=== PATIENT | female | born 1945 | race Caucasian/White ===

== ENCOUNTER 2021-04-23 12:29 | Emergency (ER) | payer OTHER ==
[~2021-04-23] VITALS: Ht 154.9 cm; Wt 45.4 kg
--- NOTE | ~2021-04-23 | EMS ---
[address] [address] EMS Patient Care Report Name: ALEXUS JEROME Room #: DEP MADH[facility] Chapman#: [id number] Admission: 04/23/21 Attend Phys: Discharge: 04/23/21 Date of : 45 Report #: [id number] THIS REPORT FOR: //name// Report Transmitted: 04/24/2021 09:58 EMS Care Summary [place], [place]/[facility] Incident [id number] @ 04/23/2021 11:50 Incident Location [address] [address] Patient ALEXUS JEROME Female, 76 Years 1945 Patient Address [address] [place] [address] Patient History Breast Cancer,Vertigo, Patient Allergies No known allergies, Patient Medications None Reported, Chief Complaint BACK PAIN Disposition Transported No Lights/[place] Dispatch Reason Falls Transported To [facility] Narrative M41 WAS DISPATCHED FOR FALL. UPON ARRIVAL THE PT WAS SITTING IN A CAHIR IN HER LIVING ROOM. THE PT INFORMED EMS THAT SHE HAD A SYNCOPAL EPISODE FOUR HOURS [address] [address] EMS Patient Care Report Name: ALEXUS JEROME Room #: DEP Ari#: [id number] Admission: 04/23/21 Attend Phys: Discharge: 04/23/21 Date of : 45 Report #: [id number] PRIOR. SHE SAID SHE HAD GOTTEN DIZZY WHILE GOING TO GET COFFEE AND HAD FALLEN ON THE KITCHEN FLOOR. THE PT DENIED HITTING HER HEAD. THE PT PAIN WAS LOCATED ON HER RIGHT SIDE AND BACK AROUND HER LOWER RIBS. THE PT SAID SHE WAS ABLE TO GET UP ON HER OWN AND HAD BEEN UP WALKING AROUND AND TALKING TO HER NEICE SINCE THE INCIDENT HAPPENED. THE PT SAID THIS WAS THE THIRD TIME IN THE LAST MONTH THAT SHE HAD HAD AN EPISOE LIKE THIS AND THAT SHE HAD APPOINTMNTS SET UP TO BE EVALUATED BUT HAD NOT YET BEEN TO THOSE APPOINTMENTS. THE PT WAS MOVED TO THE AMBULANCE AND TRANSPORTED TO THE HOSPITAL. THE PT WAS TRANSFERRED TO HOSPITAL STAFF WITH A REPORT. EMS RETURNED TO SERVICE. Initial Vitals @12:04P: 109,R: 16,Pain: 4/10,SpO2: 98,[place] Suspected: false @12:18P: 104,R: 16,BP: 184/82,Pain: 4/10,GCS: 15,SpO2: 100,Revised Trauma: 12,[place] Suspected: false @12:10P: 101,R: 16,BP: 187/94,Pain: 4/10,GCS: 15,SpO2: 98,Revised Trauma: 12,[place] Suspected: false @12:03P: 107,R: 16,BP: 198/83,Pain: 4/10,GCS: 15,Glucose: 202,SpO2: 99,Revised Trauma: 12, Assessments @11:58MENTAL:Time Oriented,Event Oriented,Place Oriented,Person Oriented,SKIN:HEENT:Head/Face: No Abnormalities,Neck/Airway: No Abnormalities,LUNG SOUNDS:General: No Abnormalities,ABDOMEN:General: No Abnormalities,PELVIS//GI:No Abnormalities,EXTREMITIES:Left Arm: No Abnormalities,Right Arm: No Abnormalities,Left Leg: No Abnormalities,Right Leg: No Abnormalities,PULSE:Radial: 2+ Normal,NEURO:No Abnormalities, Impression Back Pain Procedures @11:58 ALS Assessment Response: UnchangedSucceeded @12:04 3-Lead ECG Response: UnchangedSucceeded @12:05 IV Therapy - Saline Lock 0cc (20 ga) Site: Hand-Left Response: UnchangedFailed Timeline 11:47,Call Received 11:47,Dispatch Notified 11:50,Dispatched 11:51,En Route 11:56,On Scene 11:58,At Patient 11:58,ALS Assessment,Response: UnchangedSucceeded, 12:03,BP: 198/83 M,PULSE: 107,RR: 16 R,SPO2: 99 Ox,ETCO2: ,B,PAIN: [address] [address] EMS Patient Care Report Name: ALEXUS JEROME Room #: [facility] Ari#: [id number] Admission: 04/23/21 Attend Phys: Discharge: 04/23/21 Date of : 45 Report #: [id number] 4,GCS: 15, 12:04,3-Lead ECG,Response: UnchangedSucceeded, 12:04,BP: / M,PULSE: 109,RR: 16 R,SPO2: 98 Ox,ETCO2: ,BG: ,PAIN: 4,GCS: , 12:05,IV Therapy - Saline Lock 0cc 20 ga Site: Hand-Left,Response: UnchangedFailed, 12:10,BP: 187/94 M,PULSE: 101,RR: 16 R,SPO2: 98 Ox,ETCO2: ,BG: ,PAIN: 4,GCS: 15, 12:13,Depart Scene 12:18,BP: 184/82 M,PULSE: 104,RR: 16 R,SPO2: 100 Ox,ETCO2: ,BG: ,PAIN: 4,GCS: 15, 12:24,At Destination 12:39,Call Closed Disclaimer v1.1 Copyright 2021 [employer] This EMS Care Summary contains data elements from the applicable legal record (which may be displayed differently). It is designed to provide pertinent information for the following purposes: continuity of care, clinical quality, and state data reporting. The complete legal record is available to ED staff and administrators of the receiving hospital in [employer]'s Patient Tracker. All data is provided "as is."
[2021-04-23 13:36] LABS: URINE BILIRUBIN NEGATIVE (Negative); URINE BLOOD 1+ (Negative); URINE CLARITY CLEAR; URINE COLOR YELLOW; URINE GLUCOSE-RANDOM* NEGATIVE (Negative); URINE KETONES NEGATIVE (Negative); URINE LEUKOCYTES-REFLEX NEGATIVE (Negative); URINE NITRITE-REFLEX NEGATIVE (Negative); URINE PROTEIN (DIPSTICK) NEGATIVE (Negative); URINE UROBILINOGEN 0.2 E.U./dl (0.2-1.0)
[2021-04-23 13:48] LABS: ABSOLUTE NEUTROPHILS 7.6 thou/uL (1.4-8.2); BASOPHILS 0.6 % (0.0-2.0); EOSINOPHILS 0.3 % (0.0-3.0); HEMATOCRIT 40.9 % (37.0-47.0); HEMOGLOBIN 13.6 gm/dL (12.0-15.0); LYMPHOCYTES 12.1 % (24.0-44.0); MCH 32.3 pg (26.0-34.0); MCHC 33.2 g/dL (28.0-37.0); MCV 97.1 fL (80.0-100.0); MONOCYTES 5.2 % (1.0-8.0); PLATELET COUNT 205 thou/uL (150-400); POLYS 81.8 % (36.0-66.0); RBC 4.22 mil/uL (4.20-5.00); RDW 14.7 % (10.5-14.5); WBC 9.3 thou/uL (4.0-11.0)
[2021-04-23 13:56] LABS: CALCIUM 10.7 mg/dL (8.5-10.1); POTASSIUM 3.6 mmol/L (3.5-5.1)
[2021-04-23 13:59] LABS: SQUAMOUS >10 Many /LPF (0-3)
[2021-04-23 14:00] LABS: BACTERIA-REFLEX 1-9 Few /HPF (None Seen); CASTS None Seen /LPF (None Seen); CRYSTALS None Seen /LPF (None Seen); URINE RBC 1-2 Rare /HPF (NONE SEEN); URINE WBC-REFLEX 0-5 Rare /HPF (0-5)
[2021-04-23 14:10] LABS: ALBUMIN 4.2 g/dL (3.4-5.0); MAGNESIUM 1.7 mg/dL (1.8-2.4); TOTAL BILIRUBIN 0.2 mg/dL (0.2-1.0); TOTAL PROTEIN 7.9 g/dL (6.4-8.2)
[2021-04-23] MEDS ORDERED: [UNRECOGNIZED DRUG - OTHER] MC (14:40)
[2021-04-23] MEDS ORDERED: NORCO5 PO (14:42)
[2021-04-23 15:11] VITALS: BP 155/52
--- NOTE | 2021-04-23 16:22 | EKG ---
[place] [address] [facility] [place] [address] ELECTROCARDIOGRAM REPORT Name: ALEXUS JEROME Room #: DEP [facility] [id number] Admission: 04/23/21 Attend Phys: Discharge: 04/23/21 Date of : 45 Report #: [id number] [facility] ED Test Date: 2021-04-23 Test Time: 12:39:52 Pat Name: ALEXUS JEROME Department: Room: Gender: F [employer]: TJ : 1945 Requested By: Estella Higgins Order Number: [id number] MD: Liborio Decker Measurements Intervals [place] Rate: 94 P: 69 [place]: 133 QRS: 67 QRSD: 95 T: 83 QT: 365 QTc: 457 Interpretive Statements Sinus rhythm Atrial premature complex Probable left atrial enlargement No previous ECG available for comparison Electronically Signed On 04-23-2021 16:21:58 SECURITIES COUNSELOR by Liborio Decker [email or web address] <ELECTRONICALLY SIGNED> By: Liborio Decker MD, [facility] 04/23/21 1621 1239 1239 Liborio Decker MD, FACC /EPI
== END 2021-04-23 15:13 | disposition home or self-care (01) ==
LOC: ER 12:29
PROVIDERS: Student in an Organized Health Care Education/Training Program
DX: S20.211A Contusion of right front wall of thorax, initial encounter (principal); F17.210 Nicotine dependence, cigarettes, uncomplicated; W19.XXXA Unspecified fall, initial encounter; Y93.89 Activity, other specified; Y92.89 Other specified places as the place of occurrence of the external cause; Y99.8 Other external cause status